=== PATIENT | female | born 1965 | race Caucasian/White ===

== ENCOUNTER 2017-01-17 08:40 | Emergency (ER) | payer SELFPAY ==
[~2017-01-17] VITALS: Ht 157.5 cm; Wt 51.0 kg
[~2017-01-17 08:40] MED LIST: ACET-1757 PO; ACID1TAB3 PO; CEFD300C37 PO; LOPE2TAB28 PO; METR250T PO; OXYC5TAB3 PO; PANT40TA5 PO; VANC1VIA3 PO
[2017-01-17] MEDS ORDERED: ONDANSETRON 2MG/ML, 2ML ONE ×2 (09:25→11:45)
[2017-01-17] MEDS ORDERED: MAALOX/HYOSCYAMINE/LIDOCAINE 45 ML BTL ONE (09:25)
[2017-01-17] MEDS ORDERED: LORazepam 2 MG/ML, 1ML ONE (09:27)
[2017-01-17] MEDS ORDERED: SODIUM CHLORIDE 0.9% 1,000ML IVBOLUS ONE (09:30)
[2017-01-17] MEDS ORDERED: MAALOX/HYOSCYAMINE/LIDOCAINE 45 ML BTL PO ONE (09:30)
[2017-01-17] MEDS ORDERED: LORazepam 1MG TABLET PO ONE (09:30)
[2017-01-17] MEDS ORDERED: ONDANSETRON 2MG/ML, 2ML IVPush ONE ×2 (09:30→11:30)
[2017-01-17 09:41] LABS: HEMATOCRIT 43.8 % (34.6-47.8); HEMOGLOBIN 14.8 g/dL (11.7-16.4); WHITE BLOOD COUNT 7.7 x10^3/uL (3.4-10)
[2017-01-17 09:49] LABS: ASPARTATE AMINO TRANSFERASE 14 U/L (15-37); BLOOD UREA NITROGEN 20 mg/dL (7-18)
[2017-01-17] MEDS ORDERED: LORazepam 2 MG/ML, 1ML IVPush ONE (10:00)
[2017-01-17] MEDS ORDERED: HYDROmorphone 2 MG/ML, 1ML IVPush ONE (11:30)
[2017-01-17] MEDS ORDERED: HYDROmorphone 1 MG/ML, 1ML ONE (11:36)
[2017-01-17] MEDS ORDERED: PROMETHAZINE 25 MG/ML, 1ML ONE (12:42)
[2017-01-17] MEDS ORDERED: PROMETHAZINE 25 MG/ML, 1ML IM ONE (13:00)
[2017-01-17] MEDS ORDERED: SODIUM CHLORIDE 0.9%, 500ML IVBOLUS ONE (13:00)
[2017-01-17 13:06] VITALS: BP 118/72
== END 2017-01-17 13:09 | disposition home or self-care (01) ==
LOC: ED 10:46
DX: A08.4 Viral intestinal infection, unspecified (principal)
CPT/HCPCS: 36415; 80053; 83690; 84702; 84703; 85025; 96361; 96374; 96375; 96376; 99285; J1170; J2405; J7030

== ENCOUNTER 2017-01-17 19:00 | Emergency (ER) | payer OTHER ==
[~2017-01-17] VITALS: Ht 157.5 cm; Wt 51.2 kg
[2017-01-17] MEDS ORDERED: SODIUM CHLORIDE 0.9% 1,000 ML IV ONE (19:12)
[2017-01-17] MEDS ORDERED: FAMOTIDINE 20 MG/2 ML IVP ONE (19:30)
[2017-01-17] MEDS ORDERED: SODIUM CHLORIDE 0.9% 1,000ML IVBOLUS ONE (19:30)
[2017-01-17] MEDS ORDERED: ONDANSETRON 2MG/ML, 2ML IVPush ONE (19:30)
[2017-01-17] MEDS ORDERED: FAMOTIDINE 20 MG/2 ML ONE (20:38)
[2017-01-17] MEDS ORDERED: ONDANSETRON 2MG/ML, 2ML ONE (20:38)
[2017-01-17] MEDS ORDERED: HYDROmorphone 1 MG/ML, 1ML IVPush STA (22:03)
[2017-01-17] MEDS ORDERED: HYDROmorphone 1 MG/ML, 1ML ONE (22:22)
[2017-01-17 22:25] VITALS: BP 153/92
== END 2017-01-17 23:33 | disposition home or self-care (01) ==
LOC: ED 19:55
DX: A08.4 Viral intestinal infection, unspecified (principal); E86.0 Dehydration
CPT/HCPCS: 74176; 96361; 96374; 96375; 99284; J1170; J2405; J7030; S0028

== ENCOUNTER 2019-02-16 08:58 | Emergency (ER) | payer SELFPAY ==
[~2019-02-16] VITALS: Ht 157.5 cm; Wt 54.5 kg
[2019-02-16 09:03] VITALS: BP 147/77
[2019-02-16] MEDS ORDERED: MORPHINE SULFATE 4 MG/ML, 1ML IVPush PRN (09:30)
[2019-02-16] MEDS ORDERED: ONDANSETRON 2MG/ML, 2ML IVPush ONE (09:30)
[2019-02-16] MEDS ORDERED: FAMOTIDINE 20 MG/2 ML IV ONE (09:30)
[2019-02-16] MEDS ORDERED: SODIUM CHLORIDE 0.9% 1,000ML IVBOLUS ONE (09:30)
[2019-02-16 09:40] LABS: BASOPHILS # (AUTO) 0.02 x10^3/uL (0-0.1); BASOPHILS % (AUTO) 0 % (0-1); EOSINOPHILS % (AUTO) 0 % (1-7); LYMPHOCYTES # (AUTO) 0.74 x10^3/uL (1-3.4); LYMPHOCYTES % (AUTO) 9 % (22-44); MD NO; MEAN CORPUSCULAR HEMOGLOBIN 30.7 pg (27.0-34.8); MEAN CORPUSCULAR HGB CONC 33.3 g/dL (32.4-35.8); MEAN CORPUSCULAR VOLUME 92.3 fL (80-100); MEAN PLATELET VOLUME 7.8 fL (7.4-10.4); MONOCYTES # (AUTO) 0.21 x10^3/uL (0.2-0.8); MONOCYTES % (AUTO) 2 % (2-9); NEUTROPHILS # (AUTO) 7.67 x10^3/uL (1.8-6.8); NEUTROPHILS % (AUTO) 89 % (42-75); PLATELET COUNT 269 x10^3/uL (130-400); RED BLOOD COUNT 4.54 x10^6/uL (3.82-5.3); RED CELL DISTRIBUTION WIDTH 13.1 % (9.6-15.2)
[2019-02-16] MEDS ORDERED: FAMOTIDINE 20 MG/2 ML ONE (09:40)
[2019-02-16] MEDS ORDERED: ONDANSETRON 2MG/ML, 2ML ONE (09:40)
[2019-02-16] MEDS ORDERED: MORPHINE SULFATE 4 MG/ML, 1ML ONE ×2 (09:40→12:10)
[2019-02-16 09:52] LABS: ALANINE AMINOTRANSFERASE 21 U/L (12-78); ALBUMIN 4.8 g/dL (3.4-5.0); ANION GAP 9 mmol/L (5-15); CALCIUM 9.7 mg/dL (8.5-10.1); CHLORIDE 106 mmol/L (98-107)
[2019-02-16 09:55] LABS: ALKALINE PHOSPHATASE 94 U/L (45-117); BILIRUBIN,TOTAL 0.7 mg/dL (0.2-1.0); CREATININE 1.14 mg/dL (0.55-1.02); TOTAL PROTEIN 7.8 g/dL (6.4-8.2)
--- NOTE | 2019-02-16 10:09 | NUR ---
PT STATES SHE HAS BEEN SICK FOR 6 DAYS, DIFFUSE ABD PAIN, N/V/D, AND CHILLS. EMESIS X 2 IN ROOM OF GREEN LIQUID BILE. PT HAS HISTORY OF DIVERTICULITIS AND C-DIFF 2 YEARS AGO. IV STARTED IN EJ, MEDICATED PER JUN. WARMER AND BLANKETS APPLIED. PT RESTING WITHOUT OBVIOUS S/S OF DISTRESS AT THIS TIME. IV FLUIDS INFUSING, PT DENIES ANY FURTHER NEEDS OR CONCERNS AT THIS TIME.
[2019-02-16] MEDS ORDERED: METOCLOPRAMIDE 5 MG/ML, 2ML IVPush ONE (10:30)
[2019-02-16] MEDS ORDERED: METOCLOPRAMIDE 5 MG/ML, 2ML ONE (10:34)
[2019-02-16] MEDS ORDERED: OMNIPAQUE 350 MG/ML, 100ML BOTTLE ONE (11:14)
[2019-02-16 11:27] LABS: MICROSCOPIC AUTO
[2019-02-16 11:28] LABS: CULTURE INDICATED? NO
--- NOTE | 2019-02-16 13:48 | NUR ---
late entry: Second dose of morphine given prior to patient discharge, per PA request. Pt provided with new underwear and pads. EJ removed without issue. Denies any further needs or concerns.
== END 2019-02-16 12:33 ==
LOC: ED 11:29
DX: A08.4 Viral intestinal infection, unspecified (principal)
CPT/HCPCS: 36415; 74177; 80053; 81001; 83690; 85025; 96361; 96374; 96375; 99284; J2270; J2405; J2765; J3490; J7030; Q9967

== ENCOUNTER 2019-08-05 08:12 | Emergency (ER) | payer SELFPAY ==
[~2019-08-05] VITALS: Ht 157.5 cm; Wt 53.0 kg
[~2019-08-05 08:12] MED LIST changes: -ACET-1757 PO; +ACET-2065 PO
[2019-08-05 08:15] VITALS: BP 136/94
--- NOTE | 2019-08-05 08:23 | NUR ---
TASK RN: Pt ambulates to room from triage with steady gait and balance.
--- NOTE | 2019-08-05 08:36 | NUR ---
Michael Maya PA-C at bedside for assessment. Will follow orders.
[2019-08-05] MEDS ORDERED: OXYcodone/APAP 5/325MG TABLET ONE (08:40)
--- NOTE | 2019-08-05 08:47 | NUR ---
Pt medicated for pain per orders. will reassess.
[2019-08-05] MEDS ORDERED: OXYcodone/APAP 5/325MG TABLET PO ONE (09:00)
--- NOTE | 2019-08-05 09:14 | NUR ---
TASK RN: Pt transfered on gurney to x-ray from ED.
--- NOTE | 2019-08-05 09:53 | NUR ---
Patient given discharge instructions and they have confirmed that they understand the instructions. Patient ambulatory with steady gait. Pt left with Rx, D/C paperwork, and all personal belongings. No other needs requested.
== END 2019-08-05 09:56 | disposition home or self-care (01) ==
LOC: ED 09:39
DX: S39.012A Strain of muscle, fascia and tendon of lower back, initial encounter (principal); S29.012A Strain of muscle and tendon of back wall of thorax, initial encounter; G89.11 Acute pain due to trauma; M41.114 Juvenile idiopathic scoliosis, thoracic region; M47.816 Spondylosis without myelopathy or radiculopathy, lumbar region; W11.XXXA Fall on and from ladder, initial encounter; Y93.89 Activity, other specified; Y92.098 Other place in other non-institutional residence as the place of occurrence of the external cause; Y99.8 Other external cause status
CPT/HCPCS: 72072; 72110; 99284

== ENCOUNTER 2019-08-30 15:14 | Emergency (ER) | payer SELFPAY ==
[~2019-08-30] VITALS: Ht 157.5 cm; Wt 56.0 kg
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
[2019-08-30] MEDS ORDERED: IBUPROFEN 800 MG TABLET ONE (15:53)
--- NOTE | 2019-08-30 15:56 | NUR ---
PATIENT MEDICATED PER EMAR, TOLERATED WELL. ICE PACK APPLIED, EXTREMITY ELEVATED WITH PILLOW
[2019-08-30] MEDS ORDERED: IBUPROFEN 800 MG TABLET PO ONE (16:00)
[2019-08-30 16:57] VITALS: BP 106/81
--- NOTE | 2019-08-30 18:11 | NUR ---
PATIENT UP FOR DISCHARGE. GIVEN DISCHARGE PAPERWORK AND INSTRUCTIONS FOR FOLLOW UP, PATIENT VERBALIZED UNDERSTANDING. WAITING FOR DAUGTHER IN LAW TO GET BACK TO ER FOR TRANSPORTATION AND SAFE DISCHARGE
--- NOTE | 2019-08-30 19:11 | NUR ---
WAITING FOR DAUGHTER TO ARRIVE BACK TO ER FOR TRANSPORTATION
--- NOTE | 2019-08-30 19:25 | NUR ---
PATIENT STATES "I CAN WAIT OUT IN THE LOBBY FOR MY DAUGHTER IN LAW NOW". PATIENT WHEELED TO DISCHARGE, VERBALIZES UNDERSTANDING OF DISCHARGE INSTRUCTIONS AND RX.
== END 2019-08-30 19:27 | disposition home or self-care (01) ==
LOC: ED 18:18
DX: S52.571A Other intraarticular fracture of lower end of right radius, initial encounter for closed fracture (principal); X58.XXXA Exposure to other specified factors, initial encounter; Y93.89 Activity, other specified; Y92.098 Other place in other non-institutional residence as the place of occurrence of the external cause; Y99.8 Other external cause status
CPT/HCPCS: 29125; 99284

== ENCOUNTER 2019-09-05 09:55 | Emergency (ER) | payer OTHER ==
[~2019-09-05] VITALS: Ht 160 cm; Wt 53.4 kg
--- NOTE | 2019-09-05 10:02 | NUR ---
PATEINT AMBULATED TO ROOM W/ A STEADY GAIT.
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
[2019-09-05] MEDS ORDERED: ONDANSETRON ODT 4 MG ONE (10:23)
[2019-09-05] MEDS ORDERED: OXYcodone/APAP 10/325MG TABLET ONE (10:23)
[2019-09-05 10:28] VITALS: BP 123/72
[2019-09-05] MEDS ORDERED: OXYcodone/APAP 10/325MG TABLET PO ONE (10:30)
[2019-09-05] MEDS ORDERED: ONDANSETRON ODT 4 MG PO ONE (10:30)
--- NOTE | 2019-09-05 10:30 | NUR ---
PT MEDICATED PER EMAR. RAD IN ROOM FOR XRAY. Addendum: 09/05/19 at 1032 by CBRUCIAGA PT MEDICATED PER EMAR. RAD IN ROOM FOR XRAY. PER DEBT AND BUDGET COUNSELOR, OKAY TO IMAGE WITH CURRENT SPLINT ON.
--- NOTE | 2019-09-05 10:55 | NUR ---
ALL TESTS RESULTED. PT IS UP FOR RECHECK AT THIS TIME.
== END 2019-09-05 11:32 | disposition home or self-care (01) ==
LOC: ED 11:17
DX: M79.601 Pain in right arm (principal); M25.531 Pain in right wrist
CPT/HCPCS: 73110; 99283; Q0162

== ENCOUNTER 2019-10-04 07:14 | Emergency (ER) | payer SELFPAY ==
[~2019-10-04] VITALS: Ht 160 cm; Wt 60.0 kg
--- NOTE | 2019-10-04 07:28 | NUR ---
AIR MARSHAL: PT TO ROOM FROM LOBBY VIA WHEELCHAIR AT THIS TIME. BRANDT. Addendum: 10/04/19 at 0746 by INA SAM RODRIGUEZ AT BEDSIDE FOR ASSESSMENT.
[2019-10-04] MEDS ORDERED: MORPHINE SULFATE 4 MG/ML, 1ML IVPush PRN (08:00)
[2019-10-04] MEDS ORDERED: ONDANSETRON 2MG/ML, 2ML IVPush ONE (08:00)
[2019-10-04] MEDS ORDERED: SODIUM CHLORIDE FLUSH 10ML SYR IVF ONE (08:00)
[2019-10-04] MEDS ORDERED: ONDANSETRON 2MG/ML, 2ML ONE (08:11)
[2019-10-04] MEDS ORDERED: MORPHINE SULFATE 4 MG/ML, 1ML ONE (08:11)
[2019-10-04 08:34] LABS: BASOPHILS # (AUTO) 0.03 x10^3/uL (0-0.1); BASOPHILS % (AUTO) 0 % (0-1); EOSINOPHILS # (AUTO) 0.01 x10^3/uL (0-0.4); EOSINOPHILS % (AUTO) 0 % (1-7); LYMPHOCYTES # (AUTO) 1.42 x10^3/uL (1-3.4); LYMPHOCYTES % (AUTO) 19 % (22-44); MD NO; MEAN CORPUSCULAR HEMOGLOBIN 30.8 pg (27.0-34.8); MEAN CORPUSCULAR HGB CONC 33.2 g/dL (32.4-35.8); MEAN CORPUSCULAR VOLUME 92.8 fL (80-100); MEAN PLATELET VOLUME 7.9 fL (7.4-10.4); MONOCYTES # (AUTO) 0.13 x10^3/uL (0.2-0.8); MONOCYTES % (AUTO) 2 % (2-9); NEUTROPHILS # (AUTO) 5.94 x10^3/uL (1.8-6.8); NEUTROPHILS % (AUTO) 79 % (42-75); PLATELET COUNT 286 x10^3/uL (130-400); RED BLOOD COUNT 4.47 x10^6/uL (3.82-5.3)
[2019-10-04 08:37] LABS: ALANINE AMINOTRANSFERASE 36 U/L (12-78); ALBUMIN 4.3 g/dL (3.4-5.0); ANION GAP 6 mmol/L (5-15); CALCIUM 9.2 mg/dL (8.5-10.1); CHLORIDE 110 mmol/L (98-107); CREATININE 0.72 mg/dL (0.55-1.02)
[2019-10-04 08:40] LABS: ALKALINE PHOSPHATASE 108 U/L (45-117); BILIRUBIN,TOTAL 0.6 mg/dL (0.2-1.0); TOTAL PROTEIN 7.9 g/dL (6.4-8.2)
--- NOTE | 2019-10-04 08:47 | NUR ---
PT MEDICATED FOR PAIN, STATES MEDICATIONS EFFECTIVE, PAIN DECREASED. PT AWAITING CT. PT AWARE NEEDS U/A. VSS. CONT TO MONITOR.
[2019-10-04] MEDS ORDERED: ACETAMINOPHEN 500 MG TABLET ONE (09:49)
[2019-10-04] MEDS ORDERED: ONDANSETRON ODT 4 MG ONE (09:49)
--- NOTE | 2019-10-04 09:53 | NUR ---
anjana rn: pt in [place] stating she is nauseated and still in pain. pts concerns brought to provider. pt medicated per order and redirected back to bed. call light given to pt and pt encouraged to use. no other wants or needs expressed at this time.
[2019-10-04] MEDS ORDERED: ONDANSETRON ODT 4 MG PO ONE (10:00)
[2019-10-04] MEDS ORDERED: ACETAMINOPHEN 500 MG TABLET PO ONE (10:00)
--- NOTE | 2019-10-04 10:33 | NUR ---
PT RESTING IN BED, STATES STILL HAS PAIN, ERMD AWARE. PT REMAINS ON MONITORS, VSS. PT TO BE D/C.
--- NOTE | 2019-10-04 10:51 | NUR ---
PT OK FOR D/C. PT TOOK OUT OWN IV, DRSG PLACED OVER SITE, BLEEDING CONTROLLED. PT VERBALIZED UNDERSTANDING OF D/C INSTRUCTIONS, HAS STEADY GAIT AND ALL OWN BELONGINGS UPON D/C.
[2019-10-04 10:55] VITALS: BP 126/86
== END 2019-10-04 10:57 | disposition home or self-care (01) ==
LOC: ED 07:32
DX: R10.32 Left lower quadrant pain (principal); Z88.0 Allergy status to penicillin; Z88.6 Allergy status to analgesic agent; Z88.8 Allergy status to other drugs, medicaments and biological substances
CPT/HCPCS: 36415; 74176; 80053; 85025; 96374; 96375; 99284; J2270; J2405; Q0162

== ENCOUNTER 2019-10-04 15:20 | Emergency (ER) | payer SELFPAY ==
[~2019-10-04] VITALS: Ht 160 cm; Wt 60.0 kg
[2019-10-04 15:28] VITALS: BP 129/68
[2019-10-04] MEDS ORDERED: ACETAMINOPHEN 500 MG TABLET ONE (16:08)
[2019-10-04] MEDS ORDERED: ONDANSETRON ODT 4 MG ONE ×2 (16:08→17:03)
[2019-10-04 16:20] LABS: MICROSCOPIC AUTO
[2019-10-04] MEDS ORDERED: ACETAMINOPHEN 500 MG TABLET PO ONE (16:30)
[2019-10-04] MEDS ORDERED: ONDANSETRON ODT 4 MG PO ONE ×2 (16:30→17:30)
[2019-10-04] MEDS ORDERED: ONDANSETRON ODT 8 MG PO ONE (17:00)
== END 2019-10-04 17:22 | disposition home or self-care (01) ==
LOC: ED 15:29
DX: R10.84 Generalized abdominal pain (principal); R11.2 Nausea with vomiting, unspecified; R19.7 Diarrhea, unspecified
CPT/HCPCS: 81001; 87086; 99284; Q0162

== ENCOUNTER 2019-10-31 08:41 | Emergency (ER) | payer SELFPAY ==
[~2019-10-31] VITALS: Ht 160 cm; Wt 59.0 kg
[~2019-10-31 08:41] MED LIST changes: -PANT40TA5 PO; +PANT40TA6 PO
[2019-10-31] MEDS ORDERED: ONDANSETRON 2MG/ML, 2ML IVPush ONE (09:00)
[2019-10-31] MEDS ORDERED: SODIUM CHLORIDE FLUSH 10ML SYR IVF ONE (09:00)
[2019-10-31] MEDS ORDERED: SODIUM CHLORIDE 0.9% 1,000ML IVBOLUS ONE (09:00)
[2019-10-31] MEDS ORDERED: DICYCLOMINE 10 MG/ML, 2ML IM ONE (09:00)
[2019-10-31] MEDS ORDERED: DICYCLOMINE 10 MG/ML, 2ML ONE (09:03)
[2019-10-31] MEDS ORDERED: ONDANSETRON 2MG/ML, 2ML ONE (09:03)
--- NOTE | 2019-10-31 09:26 | NUR ---
pt to ed from home c/o nausea/vomiting/abd pain/yellow runny diarrhea x3 days. hx cdiff, last time 2 years ago. hx divertic as well. takes narcotic pain meds at home but "i'm out of everything". pt labile, moaning loudly, stool on sheets, refusing to let rn change her sheets. piv est, meds per jun. lab at bedside. plan xr. abd v tender to touch. call pedersen in reach. as
--- NOTE | 2019-10-31 09:49 | NUR ---
pt refusinng to lay flat for xr. pt moaning loudly, retching loudly. notified . pt now cooperating w xr. as
[2019-10-31 10:02] LABS: BASOPHILS % (AUTO) 0 % (0-1); EOSINOPHILS % (AUTO) 0 % (1-7); LYMPHOCYTES # (AUTO) 0.85 x10^3/uL (1-3.4); LYMPHOCYTES % (AUTO) 10 % (22-44); MD NO; MEAN CORPUSCULAR HEMOGLOBIN 31.1 pg (27.0-34.8); MEAN CORPUSCULAR HGB CONC 34.1 g/dL (32.4-35.8); MEAN PLATELET VOLUME 8.8 fL (7.4-10.4); MONOCYTES # (AUTO) 0.13 x10^3/uL (0.2-0.8); MONOCYTES % (AUTO) 2 % (2-9); NEUTROPHILS # (AUTO) 7.36 x10^3/uL (1.8-6.8); NEUTROPHILS % (AUTO) 88 % (42-75); PLATELET COUNT 300 x10^3/uL (130-400); RED BLOOD COUNT 4.86 x10^6/uL (3.82-5.3); RED CELL DISTRIBUTION WIDTH 12.3 % (9.6-15.2)
[2019-10-31 10:16] LABS: ALBUMIN 4.8 g/dL (3.4-5.0); ANION GAP 10 mmol/L (5-15); CALCIUM 10.8 mg/dL (8.5-10.1); CHLORIDE 106 mmol/L (98-107)
[2019-10-31 10:21] LABS: ALANINE AMINOTRANSFERASE 108 U/L (12-78); ALKALINE PHOSPHATASE 130 U/L (45-117); BILIRUBIN,TOTAL 0.8 mg/dL (0.2-1.0); CREATININE 1.08 mg/dL (0.55-1.02); TOTAL PROTEIN 8.3 g/dL (6.4-8.2)
--- NOTE | 2019-10-31 10:55 | NUR ---
[facility] asking for [facility]otic pain meds "just a little in my IV". told by no. plan for more nausea meds/antispasmodics. vss. sheets changed. as
[2019-10-31] MEDS ORDERED: PROMETHAZINE 25 MG/ML, 1ML ONE (11:17)
[2019-10-31] MEDS ORDERED: PROMETHAZINE 25 MG/ML, 1ML IM ONE (11:30)
[2019-10-31 11:52] LABS: CLOSTRIDIUM DIFFICILE ANTIGEN NEGATIVE; CLOSTRIDIUM DIFFICILE TOXIN NEGATIVE (Negative)
--- NOTE | 2019-10-31 12:15 | NUR ---
cdiff neg. pt tbdc w/ rx. as
[2019-10-31 12:44] VITALS: BP 120/65
== END 2019-10-31 12:46 | disposition home or self-care (01) ==
LOC: ED 08:58
DX: K52.9 Noninfective gastroenteritis and colitis, unspecified (principal); K29.70 Gastritis, unspecified, without bleeding; R10.84 Generalized abdominal pain; R11.2 Nausea with vomiting, unspecified
CPT/HCPCS: 36415; 74022; 80053; 83690; 85025; 87324; 89055; 96361; 96372; 96374; 99284; J0500; J2405; J2550; J7030

== ENCOUNTER 2020-08-02 11:46 | Inpatient (IN) | payer OTHER ==
[~2020-08-02] VITALS: Ht 157.5 cm; Wt 59.0 kg
[~2020-08-02 11:46] MED LIST changes: -OXYC5TAB3 PO; +OXYC5TAB98 PO
--- NOTE | 2020-08-02 12:31 | NUR ---
glass installer note: Pt knocking on triage door, states "I gotta go in the back now" Pt advised that there are no rooms available at this time, and every effort is being made to get all patients seen as soon as possible. Pt's VS reassessed, stable. Pt provided urine cup and clean catch urine collection instructions. Pt ambulatory back to lobby with steady gait.
--- NOTE | 2020-08-02 13:17 | NUR ---
heel seat laster: pt from lobby to room 31
--- NOTE | 2020-08-02 13:18 | NUR ---
per implementation technician, pt refusing x-ray
[2020-08-02 13:25] LABS: MICROSCOPIC INDICATED
[2020-08-02 13:40] LABS: BASOPHILS % (AUTO) 1 % (0-1); EOSINOPHILS % (AUTO) 0 % (1-7); LYMPHOCYTES % (AUTO) 15 % (22-44); MEAN CORPUSCULAR HEMOGLOBIN 30.8 pg (27.0-34.8); MEAN CORPUSCULAR HGB CONC 34.8 g/dL (32.4-35.8); MEAN PLATELET VOLUME 7.8 fL (7.4-10.4); MONOCYTES % (AUTO) 4 % (2-9); NEUTROPHILS % (AUTO) 81 % (42-75); PLATELET COUNT 355 x10^3/uL (130-400); RED BLOOD COUNT 4.55 x10^6/uL (3.82-5.3); RED CELL DISTRIBUTION WIDTH 13.3 % (9.6-15.2)
[2020-08-02 13:46] LABS: MD NO
[2020-08-02 13:50] LABS: ALANINE AMINOTRANSFERASE 31 U/L (12-78); ALBUMIN 4.7 g/dL (3.4-5.0); ANION GAP 9 mmol/L (5-15); CHLORIDE 108 mmol/L (98-107); CREATININE 0.87 mg/dL (0.55-1.02)
[2020-08-02 13:52] LABS: ALKALINE PHOSPHATASE 111 U/L (45-117); BILIRUBIN,TOTAL 0.5 mg/dL (0.2-1.0); TOTAL PROTEIN 7.9 g/dL (6.4-8.2)
[2020-08-02] MEDS ORDERED: MORPHINE SULFATE 4 MG/ML, 1ML IVPush ONE ×3 (14:00→17:30)
[2020-08-02] MEDS ORDERED: DIPHENHYDRAMINE 50 MG/ML, 1ML IVPush ONE ×2 (14:00→17:30)
[2020-08-02] MEDS ORDERED: METOCLOPRAMIDE 5 MG/ML, 2ML IVPush ONE (14:00)
[2020-08-02] MEDS ORDERED: METOCLOPRAMIDE 5 MG/ML, 2ML ONE (14:24)
[2020-08-02] MEDS ORDERED: DIPHENHYDRAMINE 50 MG/ML, 1ML ONE ×2 (14:24→17:31)
[2020-08-02] MEDS ORDERED: MORPHINE SULFATE 4 MG/ML, 1ML ONE ×3 (14:24→17:24)
--- NOTE | 2020-08-02 14:44 | NUR ---
PT MEDICATED PER EMAR. PT STATES LAST BM: TODAY. STATES SHE HASN'T HAD ANY ORAL INTAKE X 1 WEEK. MUCUS MEMBRANES MOIST, TEAR NOTED AT LT EYE.
--- NOTE | 2020-08-02 14:45 | NUR ---
PT CONINUING TO REFUSE XR.
--- NOTE | 2020-08-02 15:07 | NUR ---
report from yobani garcia
[2020-08-02] MEDS ORDERED: ONDANSETRON 2MG/ML, 2ML ONE (15:52)
[2020-08-02] MEDS ORDERED: ONDANSETRON 2MG/ML, 2ML IVPush ONE (16:00)
--- NOTE | 2020-08-02 16:03 | NUR ---
Hot to touch- rectal temp of 100. erp aware. Erp not to order nsaids, instead will start septic workup Medicated per EMAR for pain/nausea Lab at bedside for lactic/blood cultures x2
--- NOTE | 2020-08-02 16:23 | NUR ---
back from ct scan Pain only slightly improved to 6/10
[2020-08-02] MEDS ORDERED: PROCHLORPERAZINE 5 MG/ML, 2ML ONE (17:24)
--- NOTE | 2020-08-02 17:29 | NUR ---
ALL TESTING REVIEWED. POC REVIEWED WITH ERP- TO ADMIT GOT FOR REFRATORY ABDPAIN/NAUSEA-VOMITING
[2020-08-02] MEDS ORDERED: PROCHLORPERAZINE 5 MG/ML, 2ML IVPush ONE (17:30)
[2020-08-02] MEDS ORDERED: CEFTRIAXONE PMX 1GM/50ML 50 ML ONE (18:29)
[2020-08-02] MEDS ORDERED: CEFTRIAXONE PMX 1GM/50ML 50 ML IV ONE (18:30)
--- NOTE | 2020-08-02 18:30 | NUR ---
PAIN ONLY IMPROVED 09/30. ERP AWARE ABX ADMINISTERED PER EMAR (CULTURES ALREADY DRAWN) PATIENT ASKING FOR DILAUDID BY NAME (CERAMIC SPRAYER VERY CONCERNED FOR SEEKING BEHAVIOR)
--- NOTE | 2020-08-02 18:34 | NUR ---
UDS COLLECTED (RAN OFF URINE OBTAINED PRIOR TO NARCOTIC ADMIN)
[2020-08-02 18:57] LABS: AMPHETAMINE SCREEN, URINE Negative (Negative); BARBITURATE SCREEN, URINE Negative (Negative); BENZODIAZEPINE SCREEN, URINE Negative (Negative); CANNABINOID SCREEN, URINE Negative (Negative); COCAINE SCREEN, URINE Negative (Negative); METHADONE SCREEN, URINE Negative (Negative); OPIATE SCREEN, URINE Positive (Negative)
[2020-08-02] MEDS: CEFTRIAXONE PMX 1GM/50ML 50 ML IV SCH (20:11)
[2020-08-02 20:12] VITALS: BP 140/85
[2020-08-02] MEDS: OXYcodone/APAP 5/325MG TABLET PO PRN (20:35)
[2020-08-02] MEDS: ONDANSETRON 2MG/ML, 2ML IVPush PRN (20:36)
[2020-08-02] MEDS: POTASSIUM CHLORIDE 40 MEQ in LACTATED RINGERS 1,000 ML IV SCH (21:36)
[2020-08-03 00:24] VITALS: BP 105/68
[2020-08-03] MEDS: ONDANSETRON 2MG/ML, 2ML IVPush PRN ×6 (00:37→23:28)
[2020-08-03] MEDS: OXYcodone/APAP 5/325MG TABLET PO PRN ×6 (00:37→23:27)
[2020-08-03 08:03] VITALS: BP 157/75
[2020-08-03] MEDS: POTASSIUM CHLORIDE 40 MEQ in LACTATED RINGERS 1,000 ML IV SCH (08:05)
[2020-08-03] MEDS: PHENAZOPYRIDINE 200 MG TABLET PO SCH ×3 (09:15→17:48)
[2020-08-03 13:53] LABS: CLOSTRIDIUM DIFFICILE ANTIGEN NEGATIVE; CLOSTRIDIUM DIFFICILE TOXIN NEGATIVE (Negative)
[2020-08-03] MEDS ORDERED: DIPHENOXYLATE/ATROPINE TABLET PO PRN (14:00)
[2020-08-03 14:54] VITALS: BP 149/85
[2020-08-03] MEDS ORDERED: hydrALAzine 20 MG/ML, 1ML IV PRN (15:00)
[2020-08-03 18:29] LABS: ANION GAP 6 mmol/L (5-15); CHLORIDE 113 mmol/L (98-107); CREATININE 0.85 mg/dL (0.55-1.02)
[2020-08-03 19:10] VITALS: BP 136/84
[2020-08-03] MEDS: CEFTRIAXONE PMX 1GM/50ML 50 ML IV SCH (19:21)
[2020-08-04 01:03] VITALS: BP 138/76
[2020-08-04] MEDS: OXYcodone/APAP 5/325MG TABLET PO PRN ×2 (04:14→09:26)
[2020-08-04] MEDS: ONDANSETRON 2MG/ML, 2ML IVPush PRN (04:14)
[2020-08-04 08:10] VITALS: BP 119/77
[2020-08-04] MEDS: PHENAZOPYRIDINE 200 MG TABLET PO SCH ×2 (08:25→12:00)
[2020-08-04] MEDS ORDERED: OXYC1TAB14 PO (08:58)
[2020-08-04] MEDS ORDERED: DIPH1TAB6 PO (08:58)
[2020-08-04] MEDS ORDERED: CEFTRIAXONE PMX 1GM/50ML 50 ML IV ONE (10:00)
== END 2020-08-04 12:18 | disposition home or self-care (01) | DRG 690 ==
LOC: ED 17:09 → INTOOBSV 19:51 → EDIP 19:51 → 3N 20:07 → OBSVTOIN 08-03 15:03 → DCLOUNGE 08-04 12:10
PROVIDERS: ADMIT Family Medicine; ATTEND Family Medicine
DX: N30.90 Cystitis, unspecified without hematuria (principal); K52.9 Noninfective gastroenteritis and colitis, unspecified; N20.0 Calculus of kidney; E87.6 Hypokalemia; E86.9 Volume depletion, unspecified; K57.30 Diverticulosis of large intestine without perforation or abscess without bleeding; G89.29 Other chronic pain; Z88.8 Allergy status to other drugs, medicaments and biological substances; Z88.0 Allergy status to penicillin; Z88.5 Allergy status to narcotic agent; Z79.899 Other long term (current) drug therapy; Z79.891 Long term (current) use of opiate analgesic; Z79.01 Long term (current) use of anticoagulants; Z90.49 Acquired absence of other specified parts of digestive tract; E86.0 Dehydration; B97.10 Unspecified enterovirus as the cause of diseases classified elsewhere
CPT/HCPCS: 36415; 74176; 80048; 80053; 80307; 81001; 83605; 83735; 84145; 85025; 87040; 87086; 87324; 93005; 96374; 96375; 96376; G0378; J0696; J2405; J3480; J0780; J1200; J2270; J2765; J7120